=== PATIENT | female | born 1955 | race Caucasian/White ===

== ENCOUNTER → 2016-12-23 | Outpatient (CLI) | payer BC ==
[~2016-12-23] MED LIST: CALCTAB5 PO; FLUO20CA35 PO; FRS/40 PO; LEVO25TA5 PO; MILK175C3 PO; OXYC-57 PO; POTACAP PO; TAUR500C PO
== END | disposition home or self-care (01) ==
LOC: C.LABSPEC 10:49
PROVIDERS: ATTEND Obstetrics & Gynecology
DX: N89.8 Other specified noninflammatory disorders of vagina (principal)

== ENCOUNTER → 2017-01-12 | Outpatient (CLI) | payer BC ==
--- NOTE | 2017-01-12 16:37 | MAMMOGRAPHY REPORT ---
BILATERAL DIGITAL SCREENING MAMMOGRAM WITH CAD: 01/12/2017 CLINICAL HISTORY: Routine screening examination. TECHNIQUE: Current study was also evaluated with a Computer Aided Detection (CAD) system. COMPARISON: Comparison is made to exams dated: 01/10/2016 mammogram, 09/21/2013 mammogram, 01/09/2015 mammogram, 09/01/2011 mammogram, 09/24/2010 stereotactic biopsy, and 09/16/2010 mammogram - [facility]. BREAST COMPOSITION: There are scattered areas of fibroglandular density in both breasts. FINDINGS: There is a stable metallic biopsy marker in the central left breast. A few punctate benig n-appearing microcalcifications. No new suspicious mass, architectural distortion or cluster of lisa rocalcifications is seen. IMPRESSION: ACR BI-RADS CATEGORY 1: NEGATIVE There is no mammographic evidence of malignancy. A 1 year screening mammogram is recommended. The p atient will receive written notification of the results. Approximately 10% of breast cancers are not detected with mammography. A negative mammographic repor t should not delay biopsy if a clinically suggestive mass is present. Heidy Johnson M.D. ay/:01/12/2017 15:38:51 Color Adviser: Barbra PERDOMO)(Shannen), [facility] letter sent: Normal 1/2 BI-RADS Code: ACR BI-RADS Category 1: Negative
== END | disposition home or self-care (01) ==
LOC: C.MAMM 10:03
PROVIDERS: ATTEND Family Medicine
DX: Z12.31 Encounter for screening mammogram for malignant neoplasm of breast (principal)

== ENCOUNTER → 2018-01-13 | Outpatient (CLI) | payer OTHER ==
[~2018-01-13] MED LIST changes: -OXYC-57 PO
--- NOTE | 2018-01-14 07:22 | MAMMOGRAPHY REPORT ---
BILATERAL DIGITAL SCREENING MAMMOGRAM TOMOSYNTHESIS WITH CAD: 01/13/2018 CLINICAL HISTORY: Routine screening. Patient has no complaints. TECHNIQUE: Breast tomosynthesis in addition to standard 2D mammography was performed. Current study was also evaluated with a Computer Aided Detection (CAD) system. COMPARISON: Comparison is made to exams dated: 01/12/2017 mammogram, 01/10/2016 mammogram, 01/09/2015 m ammogram, 09/21/2013 mammogram, 09/12/2012 mammogram, and 09/01/2011 mammogram - [facility]. BREAST COMPOSITION: There are scattered areas of fibroglandular density in both breasts. FINDINGS: No suspicious masses, calcifications, or areas of architectural distortion are noted in ei ther breast. There has been no significant interval change compared to prior exams. A biopsy clip is again noted within the left breast. IMPRESSION: ACR BI-RADS CATEGORY 2: BENIGN There is no mammographic evidence of malignancy. A 1 year screening mammogram is recommended. The pa tient will receive written notification of the results. Approximately 10% of breast cancers are not detected with mammography. A negative mammographic report should not delay biopsy if a clinically suggestive mass is present. Ruth Bustamante M.D. /:01/13/2018 13:33:11 Psychiatric Cns: Lisa SCOTT(Cale)(Shannen)(BD), [facility] letter sent: Normal 1/2 BI-RADS Code: ACR BI-RADS Category 2: Benign
== END | disposition home or self-care (01) ==
LOC: C.MAMM 10:29
PROVIDERS: ATTEND Family Medicine
DX: Z12.31 Encounter for screening mammogram for malignant neoplasm of breast (principal)

== ENCOUNTER 2023-05-24 04:56 | Observation (INO) ==
--- NOTE | 2023-05-13 14:59 | PAT Medication Instructions ---
Medication Instructions Date of Service May 13, 2023 Home Medications Medication Instructions Recorded amoxicillin 500 mg tablet 2,000 mg PO ONCE PRN prophylaxis 10/13/21 #4 tabs oxycodone-acetaminophen 5 mg-325 1 tab PO Q6H PRN pain #30 tabs 05/05/ mg tablet (Percocet) calcium carbonate 600 mg-vitamin D3 20 mcg (800 unit) tablet (Caltrate with Vitamin D3) 1 tab PO QPM ibuprofen 200 mg capsule 400 mg PO UD PRN Pain ezetimibe 10 mg tablet (Zetia) 10 mg PO QPM amoxicillin 500 mg tablet 2,000 mg PO ONCE PRN prophylaxis celecoxib 200 mg capsule (Celebrex) 200 mg PO QAM furosemide 40 mg tablet 40 mg PO QPM levothyroxine 75 mcg tablet 75 mcg PO QAM Medical Marijuana Card 1 dose UD PRN Pain oxycodone-acetaminophen 5 mg-325 mg tablet (Percocet) 1 tab PO Q6H PRN pain alendronate 35 mg tablet 35 mg PO WK fluoxetine 40 mg capsule 40 mg PO QPM metoprolol tartrate 25 mg tablet 50 mg PO QPM potassium chloride 8 mEq capsule,extended release 8 meq PO QPM Continue as directed amoxicillin 500 mg tablet 2,000 mg PO ONCE PRN prophylaxis ASK your surgeon for instructions ibuprofen 200 mg capsule 400 mg PO UD PRN Pain celecoxib 200 mg capsule (Celebrex) 200 mg PO QAM alendronate 35 mg tablet 35 mg PO WK DO NOT take the morning of surgery Medical Marijuana Card 1 dose UD PRN Pain Take morning of surgery With a small sip of water, OTHERWISE NOTHING TO EAT OR DRINK AFTER MIDNIGHT: levothyroxine 75 mcg tablet 75 mcg PO QAM oxycodone-acetaminophen 5 mg-325 mg tablet (Percocet) 1 tab PO Q6H PRN pain (if needed) Take evening before surgery calcium carbonate 600 mg-vitamin D3 20 mcg (800 unit) tablet (Caltrate with Vitamin D3) 1 tab PO QPM ezetimibe 10 mg tablet (Zetia) 10 mg PO QPM furosemide 40 mg tablet 40 mg PO QPM Medical Marijuana Card 1 dose UD PRN Pain (if needed) oxycodone-acetaminophen 5 mg-325 mg tablet (Percocet) 1 tab PO Q6H PRN pain (if needed) fluoxetine 40 mg capsule 40 mg PO QPM metoprolol tartrate 25 mg tablet 50 mg PO QPM potassium chloride 8 mEq capsule,extended release 8 meq PO QPM Other Notes If you have any questions please call us at [phone] or [phone] or [phone] or [phone]
--- NOTE | 2023-05-18 15:00 | Anesthesiology Consultation ---
Date of Service May 18, 2023 Assessment & Plan (1) Encounter for pre-operative examination: Chart Review Chart Review: Acceptable Risk for Surgery and Patient seen in Pre Admission Testing Pt currently scheduled as 23 hours observation. If surgeon decides to change patient to Same Day Joint, patient would be acceptable risk for JATIN, pending patient is motivated, has good support and surgeon's office completes Same Day Joint Program preop requirements. Per PAT appt on 05/18/23, patient denies any recent travel. No recent Covid exposures, Covid related symptoms, or recent Covid positive tests. Will leave to surgeon's discretion if preop Covid testing needed. Educated on importance of using Covid precautions one week prior to surgery Left Reverse TSA 07/11/21= done under [place] with Grade 2 view with MAC #3. ETT #7.5. Teaching & Discussion Pre-Anesthesia Teaching/Discussion Notes: Instructed NPO after midnight before surgery,except medications with 15 cc of water. Medication instructions provided according to the PAT guidelines. History Surgery Operation Date: 05/24/23 12:00 Proposed Procedures p Right Anterior Total Hip Arthroplasty - Francis Pabon DO Height/Weight Height: 5 ft Weight: 76.3 kg Allergies Allergy/AdvReac Type Severity Reaction Status Date / Time clavulanic acid AdvReac Intermediate Projectile Verified 05/13/23 14:23 vomiting (Augmentin) Medications Home Medications Medication Instructions Recorded Confirmed Last Taken calcium carbonate 600 mg-vitamin 1 tab PO QPM 11/15/19 05/13/23 10/27/22 D3 20 mcg (800 unit) tablet (Caltrate with Vitamin D3) ibuprofen 200 mg capsule 400 mg PO UD PRN Pain 11/15/19 05/13/23 02/15/22 ezetimibe 10 mg tablet (Zetia) 10 mg PO QPM 06/02/21 05/13/23 10/27/22 amoxicillin 500 mg tablet 2,000 mg PO ONCE PRN prophylaxis 10/13/21 05/13/23 Unknown #4 tabs celecoxib 200 mg capsule (Celebrex) 200 mg PO QAM 02/16/22 05/13/23 10/25/22 furosemide 40 mg tablet 40 mg PO QPM 02/16/22 05/13/23 10/27/22 levothyroxine 75 mcg tablet 75 mcg PO QAM 02/16/22 05/13/23 10/27/22 Medical Marijuana Card 1 dose UD PRN Pain 10/23/22 05/13/23 Unknown alendronate 35 mg tablet 35 mg PO WK 05/13/23 05/13/23 Unknown fluoxetine 40 mg capsule 40 mg PO QPM 05/13/23 05/13/23 Unknown metoprolol tartrate 25 mg tablet 50 mg PO QPM 05/13/23 05/13/23 Unknown potassium chloride 8 mEq 8 meq PO QPM 05/13/23 05/13/23 Unknown capsule,extended release oxycodone-acetaminophen 5 mg-325 1 tab PO Q6H PRN pain #30 tabs 05/18/23 05/18/23 Unknown mg tablet (Percocet) Past Medical History Medical History Anxiety Chronic back pain GERD (gastroesophageal reflux disease) Well controlled and stable History of sciatica HTN (hypertension) Hx of migraines Hyperlipidemia Hypothyroidism Lumbar facet arthropathy Swelling of lower leg Occasional (reason for lasix) Temporomandibular joint disorder R/L clicking, no locking Exercise / Class Metabolic Activity III < 4 Walking/Shop/Light housework (one flight of stairs - no chest pain, mild SOB - due to hip pain ) Past Family History Family History Other No pertinent family history Past Surgical History Surgical History Family history of reaction to anesthesia Daughter- slow to wake H/O knee surgery Left ACL X 3 History of breast biopsy benign History of carpal tunnel release R/L History of cataract surgery R/L History of cholecystectomy History of colonoscopy History of esophagogastroduodenoscopy (EGD) History of hysterectomy Total History of selective injection of anesthetic agent around lumbar nerve root Right L5-S1 Medial branch block History of tooth extraction S/p reverse total shoulder arthroplasty Left reverse TSA (07/11/21): Grade 2 view, MAC#3, ETT 7.5 + PNB at [facility] Past Anesthesia History No Hx of Anesthesia Complications and No Family Hx of Anesthesia Complications (with exception to daughter- slow to wake- just groggy - no reintubation or ICU ) History of PONV No Hx of PONV and No Hx of Motion Sickness Social History Smoking Status: Former smoker tobacco type: cigarettes Do You Dip or Chew Tobacco: No Smoking End Date: 17 years ago Hx Alcohol Use: Yes Alcohol type: hard liquor alcohol intake frequency: holidays/special occasions only Hx Substance Use: Yes substance use type: does not use Substance Use Type Other:: MEDICAL MARIJUANA CARD Last Used Substance: Unknown Last Used Substance Other:: usually in the evening recently with increased pain Review of Systems Patient denies chest pain, shortness of breath, dyspnea on exertion, cough, wheezing, palpitations. No hx of seizures, stroke, [place], apnea/snoring. No hx of blood clots or blood transfusions Physical Exam Vital Signs VITALS BP 169/103 (patient in increased pain; patient called into [facility] 05/19/23- recheck BP at home was 127/76) P 86 TEMP 97.6 SP02 95% RES 16P Constitutional no acute distress ENMT Mouth: no TMJ clicking Thyromental Distance: > or= 3.5 Finger Breadths (3.5) Mallampati Class: I Missing molars and side tooth Permanent implant to side teeth Caps to top front teeth Caps to molars and side teeth Neck neck extension not limited Respiratory normal respiratory effort; no respiratory distress Auscultation: lungs clear to auscultation bilaterally; no wheezes Cardiovascular Rate/Rhythm: regular rate and regular rhythm Heart Sounds: no murmur Vessels: no carotid bruit Musculoskeletal Spine: no pain with cervical ROM Extremities: extremities normal to inspection Psychiatric Orientation: alert Lab Results Anesthesia Preop Results Results Anesthesia Widget: WBC 10.70 K/ul (4.8-10.8) 05/18/23 Hgb 12.1 g/dl (12.0-16.0) 05/18/23 Hct 36.2 % (37.0-47.0) L 05/18/23 Plt 328 K/uL (130-400) 05/18/23 Na 137 mmol/L (136-145) 05/18/23 K 3.8 mmol/L (3.5-5.1) 05/18/23 Cl 106 mmol/L (98-107) 05/18/23 CO2 23 mmol/L (21-32) 05/18/23 BUN 20 mg/dl (6-23) 05/18/23 Creat 0.79 mg/dl (0.6-1.2) 05/18/23 Glucose Level 100 mg/dl (70-99(Fasting)) H 05/18/23 PT 10.1 Seconds (9.0-12.0) 05/18/23 PTT 25.6 Seconds (21.0-31.0) 05/18/23 INR 0.9 (0.9-1.1) 05/18/23 Blood Type O Negative 05/18/23 Antibody Screen NEGATIVE 05/18/23 Testing Electrocardiogram Date: 05/18/23 Findings: + NSR @ (80bpm) Normal EKG per cardio Chest X-Ray Date: 05/18/23 FINDINGS: Cardiac mediastinal and hilar silhouettes are within normal limits. Left shoulder arthroplasty. Chronic right-sided rib fractures. Surgical suture material in the abdominal right upper quadrant. Mild sigmoidal scoliosis of the spine. No pneumothorax, pleural effusion, airspace consolidation or pulmonary edema. IMPRESSION: No acute process.
[2023-05-24] MEDS ORDERED: TRANEXAMIC ACID 1,000 MG **IV Pre-op IV SCH (06:00)
[2023-05-24] MEDS ORDERED: dexAMETHasone 4 MG TAB PO SCH (06:00)
[2023-05-24] MEDS ORDERED: FAMOTIDINE 20 MG TAB PO SCH (06:00)
[2023-05-24] MEDS ORDERED: GABAPENTIN 300 MG CAP PO SCH (06:00)
[2023-05-24] MEDS ORDERED: ORTHO JOINT MIX INFIL SCH (06:00)
[2023-05-24] MEDS ORDERED: ACETAMINOPHEN 500 MG TAB PO SCH (06:00)
[2023-05-24] MEDS ORDERED: ceFAZolin 2000MG 2,000 MG/15 ML SYR IV SCH (06:00)
[2023-05-24] MEDS ORDERED: TRANEXAMIC ACID 1,000 MG **IV Intra-op IV SCH (06:00)
[2023-05-24] MEDS ORDERED: LR 60ML/HR IV SCH (06:00)
[2023-05-24] MEDS ORDERED: LR 500ML BOLUS, THEN 15ML/HR IV SCH (06:00)
[2023-05-24] MEDS ORDERED: MIDAZOLAM HCL 1 MG/ML 2ML VIAL ONE ×2 (06:26)
[2023-05-24] MEDS ORDERED: LIDOCAINE 2% 2 ML VIAL/AMP(20MG/ML) INFIL ONE (06:26)
[2023-05-24] MEDS ORDERED: fentaNYL citrate PF 100 MCG/2 ML VIAL ONE (06:26)
[2023-05-24] MEDS ORDERED: PROPOFOL IV EMULSION 10 MG/ML 20 ML VIAL IV ONE (06:26)
[2023-05-24] MEDS ORDERED: ROPIVACAINE 0.5% 5 MG/ML 30 ML VIAL ONE (06:30)
[2023-05-24] MEDS ORDERED: ePHEDrine sulfate 50 MG/ML AMP IV PRN (06:39)
[2023-05-24] MEDS ORDERED: fentaNYL citrate PF 100 MCG/2 ML VIAL IV PRN (06:39)
[2023-05-24] MEDS ORDERED: ATROPINE SULFATE 0.1 MG/ML 10ML SYR IV PRN (06:39)
[2023-05-24] MEDS ORDERED: ONDANSETRON INJ 2 MG/ML 2 ML VIAL IV PRN ×2 (06:39→10:09)
[2023-05-24] MEDS ORDERED: HYDROmorphone INJ 2 MG/ML SYR/VIAL IV PRN (06:39)
--- NOTE | 2023-05-24 06:40 | History & Physical Bridge Note ---
Date of Service May 24, 2023 History & Physical Bridge Note I have examined the patient, reviewed the History & Physical and in the interval since the performance of the History & Physical I have noted the following changes of clinical significance: no changes noted
[2023-05-24] MEDS ORDERED: ORTHO JOINT ANESTHETIC ONE (06:52)
[2023-05-24] MEDS ORDERED: ePHEDrine sulfate 50 MG/ML SYR ONE (07:42)
--- NOTE | 2023-05-24 08:07 | Operative Report ---
PG Post Operative Report Pre & Post Diagnosis Operation Date: 05/24/23 07:00 Pre-Op Diagnosis: (1) Osteoarthritis of right hip: Post-Op Diagnosis: (1) Osteoarthritis of right hip: I identified the patient and participated in the time-out.: Yes Procedure Operation Date: 05/24/23 07:00 Actual Procedures p Right Anterior Total Hip Arthroplasty(Right) - Francis Pabon DO Surgeon Francis Pabon DO Equipment Maint Tech Francis Osorio PA-C Estimated Blood Loss 200 Findings Consistent with Post-Op Diagnosis Specimens Right femoral head Description of Procedure Implants used I used a ZimmerBiomet total hip arthroplasty system with a size 1 high offset Avenir Complete stem, a 46 mm G7 cup with a 25mm screw, an E1 polyethylene liner , a 32 mm ceramic head with a +3.5 neck. Mellissa arrived at the hospital for the above procedure. She was seen in the preoperative holding area and the operative extremity was identified and signed. She was given a spinal anesthetic, a preoperative antibiotic, and TXA. She was then taken back to the operating room and laid on the table in the supine position. She was given basic sedation. The operative leg was secured to a Puristst leg positioner. The hip was then prepped and draped in sterile fashion. A timeout was done and the patient and the operative extremity was properly identified. An anterior approach was used. Dissection was taken down through the fascia and the tensor muscle belly was retracted laterally and the rectus was retracted medially. The circumflex vessels were identified and ligated. The capsule was then incised and tagged for later repair. The femoral neck was then cut and the femoral head was removed. The acetabulum was exposed. Time was spent doing a complete circumferential labral release. Sequential reaming of the acetabulum up to a size 45 reamer was done. Final reamings were done under fluoroscopy to ensure appropriate version. A Biomet 46 mm G7 cup was then impacted into place. A single 25 mm screw was placed. The E1 polyethylene liner was then snapped into place. Surrounding soft tissues were then injected with 100 cc of an orthopedic pain control cocktail. The proximal femur was then exposed. Sequential broaching up to a size 1 broach was done. Off that broach a size 32 head with a +3.5 neck was trialed. The hip was reduced and fluoroscopic images showed anatomic alignment of the implants in acceptable length. The broach was removed. The final size 1 standard offset Avenir Complete stem was then impacted into place. A ceramic 32 mm head with a +3.5 neck was then impacted onto the stem and the hip was reduced. Final fluoroscopic images showed anatomic alignment of the hip. The capsule was then closed with #1 Vicryl suture. A dilute betadyne lavage was then done for 3 minutes. The joint was then irrigated with normal saline solution. The fascia was closed with #1 PDS suture. Skin was closed with 2-0 Vicryl, dandre, and a Silverlon dressing. She was then transferred to a hospital bed and taken to the post anesthesia care unit in stable condition. She tolerated the procedure well. Francis Osorio PA-C, was present for the entire procedure. He was critical for patient positioning, prepping, draping, retraction exposure, wound closure and application of sterile dressing. I attest to the content of the Intraoperative Record and any orders documented therein. Any exceptions are noted below.
[2023-05-24] MEDS ORDERED: ONDANSETRON INJ 2 MG/ML 2 ML VIAL ONE (08:36)
--- NOTE | 2023-05-24 09:05 | XRay Report ---
XR hip 1V RT w pelvis CLINICAL HISTORY: IN PACU - Post Surgical TECHNIQUE: 2 views of the right hip and single frontal view of the pelvis were obtained. Comparison: Comparison is made to right hip radiograph 12/15/2022 FINDINGS: Patient is status post total hip arthroplasty with expected postsurgical changes including soft tissu e swelling and subcutaneous emphysema. Joint spaces are well-preserved. No soft tissue abnormality i s seen. IMPRESSION: Expected postoperative appearance status post placement of total hip arthroplasty. ACT 112: Negative or not required by law. Electronically signed by: David Man M.D. 05/24/2023 9:03 AM
--- NOTE | 2023-05-24 09:15 | Fluoroscopy Report ---
FL hip RT 1V CLINICAL HISTORY: RT ANTERIOR JATIN TECHNIQUE: 1 views were obtained with the C-arm in the OR with the above procedure. Total fluoroscopy time was 19.0 seconds. Radiation dose was 2.2 mGy. Comparison: Comparison is made to hip radiographs 04/15/2023 FINDINGS/IMPRESSION: Intraoperative images were obtained of right hip arthroplasty. Please correlate with intraoperative fluoroscopy and operative report. ACT 112: Negative or not required by law. Electronically signed by: David Man M.D. 05/24/2023 9:14 AM
[2023-05-24] MEDS ORDERED: oxyCODONE HCL IR 5 MG TAB (IMMEDIATE RELEASE) PO PRN (10:09)
[2023-05-24] MEDS ORDERED: MAGNESIUM HYDROXIDE SUSP 30 ML UDC PO PRN (10:09)
[2023-05-24] MEDS ORDERED: HYDROmorphone INJ 0.5 MG/0.5 ML SYR IV PRN (10:09)
[2023-05-24] MEDS ORDERED: bisacodyL 10 MG SUPP PR PRN (10:09)
[2023-05-24] MEDS ORDERED: SODIUM CHLORIDE 0.9% 1000ML 1,000 ML IV SCH (10:09)
[2023-05-24] MEDS ORDERED: NALOXONE HCL 0.4 MG/1 ML VIAL/CARP IV PRN (10:09)
[2023-05-24] MEDS ORDERED: METOCLOPRAMIDE HCL INJ 5 MG/ML 2 ML VIAL IV PRN (10:09)
--- NOTE | 2023-05-24 10:19 | Anesthesiology Progress Note ---
Date of Service May 24, 2023 Anesthesia Post Procedure Vital Signs Vital Signs: Temp Pulse Pulse Resp BP Pulse Ox O2 Del Method 05/24/23 09:40 72 14 109/64 94 Room Air 05/24/23 09:30 36.4 C L 67 14 120/71 95 Room Air 05/24/23 09:20 62 14 126/81 95 Room Air 05/24/23 09:10 72 16 127/61 94 Room Air 05/24/23 09:00 69 18 133/81 95 Room Air 05/24/23 08:50 70 18 128/80 96 Room Air 05/24/23 08:40 72 14 111/70 96 Room Air 05/24/23 08:32 36.6 C 71 14 107/58 L 95 Room Air 05/24/23 06:04 66 20 168/73 H 98 Room Air 05/24/23 05:28 37 C 87 20 188/102 H 97 Room Air Pain Intensity Right Hip: Pain Intensity: 8 Transfer of Care Handoff Completed per policy Notes Mental Status: alert / awake / arousable and participated in evaluation Patient Amnestic to Procedure: Yes Nausea / Vomiting: adequately controlled Pain: adequately controlled Airway Patency, RR, SpO2: stable & adequate BP & HR: stable & adequate Hydration State: stable & adequate Neuraxial Anesthesia: was administered and sensory block is resolving Anesthetic Complications: no major complications apparent and Pt Satisfied with anesthetic care
[2023-05-24] MEDS: ASPIRIN 81 MG ECTAB PO SCH ×2 (10:35→21:31)
[2023-05-24] MEDS: MULTIVITAMIN TAB PO SCH (10:35)
[2023-05-24] MEDS: DOCUSATE SODIUM 100 MG CAP PO SCH ×2 (10:35→21:31)
[2023-05-24] MEDS: KETOROLAC TROMETHAMINE 15 MG/ML VIAL IV SCH ×3 (10:36→23:08)
[2023-05-24] MEDS: ACETAMINOPHEN 500 MG TAB PO SCH ×2 (13:50→21:33)
[2023-05-24] MEDS: ceFAZolin 2000MG 2,000 MG/15 ML SYR IV SCH ×2 (15:16→23:08)
[2023-05-24] MEDS ORDERED: EZETIMIBE 10 MG TABLET PO SCH (21:00)
[2023-05-24] MEDS ORDERED: METOPROLOL TARTRATE 50 MG TAB PO SCH (21:00)
[2023-05-24] MEDS ORDERED: SENNA 8.6 MG TAB PO SCH (21:00)
[2023-05-24] MEDS ORDERED: FLUoxetine HCL 20 MG CAP PO SCH (21:00)
[2023-05-24] MEDS ORDERED: POTASSIUM CHLORIDE 8 MEQ PO SCH (21:00)
[2023-05-24] MEDS ORDERED: FUROSEMIDE 40 MG TAB PO SCH (21:00)
[2023-05-25] MEDS: ACETAMINOPHEN 500 MG TAB PO SCH (06:01)
[2023-05-25] MEDS: KETOROLAC TROMETHAMINE 15 MG/ML VIAL IV SCH (06:01)
[2023-05-25] MEDS ORDERED: LEVOTHYROXINE SODIUM 75 MCG TABLET PO SCH (06:30)
--- NOTE | 2023-05-25 06:59 | Orthopedic Progress Note ---
Date of Service May 25, 2023 Assessment & Plan (1) Status post right hip replacement: Overall she is doing well. She is not having much pain in the right hip. She will be seen by physical therapy today for ambulation and range of motion exercises. She is on aspirin for DVT prophylaxis. She can be discharged home later today. She will follow-up orthopedics in 2 weeks. Ankit Malloy was seen and examined at bedside this morning. Overall she is doing very well. She is not having much pain in the right hip. She has been up and ambulating to the bathroom. She has no complaints.. Review of Systems All systems reviewed & are unremarkable except as noted in HPI & below. Physical Exam On physical examination of the right hip, the dressing is clean and dry. Her leg is out full extension. She has active dorsiflexion plantarflexion of her right ankle.. Results & Data Results & Data Laboratory Results . Diagnostic Findings Postoperative x-rays of the right hip show the prosthesis to be in anatomic alignment without any evidence of fracture, dislocation, or loosening. PG Care Time/CCT Total # of Minutes Spent Total Time Spent with Patient: Total time spent is greater than 50% in coordination of care (as documented) at patient's floor/unit and/or counseling patient: Coding Level of Care Code 68224 Post Operative Follow-Up Diagnoses Status post right hip replacement Z96.641
--- NOTE | 2023-05-25 07:00 | Discharge Summary ---
Date of Service May 25, 2023 Principal Diagnosis Same as "Discharge Diagnosis" noted below under Discharge Instructions. Discharge Exam On physical examination of the right hip, the dressing is clean and dry. Her leg is out full extension. She has active dorsiflexion plantarflexion of her right ankle.. Discharge Data Procedures Performed Operation Date: 05/24/23 07:00 Actual Procedures p Right Anterior Total Hip Arthroplasty(Right) - Francis Pabon DO Ordered Studies 05/24/23 07:00 FL hip RT 1V Routine Hospital Course (1) Status post right hip replacement: On May 24, 2023 Mellissa arrived at [facility] and underwent a right hip replaced without complication. She had a spinal anesthetic. Postoperatively she was started on aspirin for DVT prophylaxis and transferred to the general orthopedic floors. Her hospital course was uneventful. On postop day #1, her vital signs were stable and her pain was well-controlled. She was able to participate well with physical therapy doing ambulation and ra nge of motion exercises. She was then discharged home. She will follow-up with orthopedics in 2 weeks. PG Care Time/CCT Total # of Minutes Spent Total Time Spent with Patient: Total time spent is greater than 50% in coordination of care (as documented) at patient's floor/unit and/or counseling patient: Discharge Plan Discharge Items Patient Disposition: Home - Home Health Services Reason For Visit: DJD Right Hip Discharge Diagnosis: Right hip replacement Activity: As commented below Non-emergency contact: Surgeon Call non-emergency contact if: your wound has increased redness and your wound has increased drainage Follow-up/Referrals: Staci Rivera DO [Primary Care Provider] - Diet: Regular Addtl Attending Provider Instructions: Activity and Therapy Recommendations: * If you are using [facility] then therapy will be provided at your home until they feel you have accomplished all of your goals. * If you are using [facility] then Physical Therapy will be provided until they feel you are ready to start Outpatient Physical Therapy. * If you are not using home therapy then Outpatient Physical Therapy should start about 3-5 days from your day of surgery. Therapy will last about 6-10 weeks * You were shown a series of exercises in the hospital. Do these exercises three times each day including the exercises you were shown in physical therapy. * Get up and walk several times each day.~ For the first four weeks, try not to stand or walk for more than one hour at a time. If you do stand or walk for more than one hour, you will not hurt anything, but your leg will likely swell.~~ * As you feel comfortable, you may change from the walker or crutches to a cane and~then to independent walking. Medications: * Narcotic You will likely be sent home from the hospital with a prescription for the narcotic pain medication that worked best throughout your stay. * Aspirin Most patients will be required to take Aspirin 81mg twice a day for 6 weeks after surgery. This is obtained [id number] and a prescription is not necessary. * Other medications may be prescribed for specific circumstances. If you have any questions, please call the office at . * Resume previous home medications unless otherwise instructed TEDs/Elastic Stockings: The white elastic stockings help limit swelling and prevent blood clots from forming in your legs. The more you wear them, the more they work. Wear them for six weeks. Dressing Care: Leave the Silverlon dressing in place for 7 days. After 7 days you may remove the dressing. If the incision is not draining then you may leave the dandre open to air. If there is a little bit of drainage or if the dandre are getting stuck on your clothing then cover the incision with a dry dressing. The dandre will be removed at your 2 week follow-up appointment. Showering: You may shower with the Silverlon dressing in place. Do not let the shower spray hit the dressing directly. Pat the Silverlon dressing dry. If the dressing becomes wet underneath, then simply remove the dressing. Keep the incision dry until you are 7 days out from the day of surgery. After 7 days you may remove the Silverlon dressing and shower with the dandre exposed. Let soapy water run over the dandre and pat them dry. Do not scrub or soak the incision. Things To Watch For: * Drainage from the incision site that occurs more than one week after your surgery. * Increased redness at the incision site. * Fever above 102 degrees Fahrenheit. * Unusual chest pain or shortness of breath. * Call [facility] at with any of the above problems Follow-Up Visit: Follow-up with Dr. Pabon's PA (Francis Osorio) 2-3 weeks after your day of surgery. He will remove your dandre and answer any questions. If you have any additional questions or concerns, Dr Pabon is usually in the office at the same time and will be available An appointment was probably scheduled when you signed-up for surgery in the office. If you have any questions call Office Instructions: More detailed instructions as well as Frequently Asked Questions were provided in a folder by our office when you signed-up for surgery. Please review these instructions when you get home. If you have any further questions or concerns, please feel free to call the office at [phone] Pending Studies at Discharge: No Stand-Alone Forms: [employer], Smoking Cessation Medications and DC Order Prescriptions: New aspirin 81 mg Tablet,Delayed Release (Dr/Ec) 81 mg PO BID 42 Days Qty: 0 0RF Continued amoxicillin 500 mg tablet 2,000 mg PO ONCE PRN (Reason: prophylaxis) Qty: 4 2RF Rx Instructions: ONE HOUR PRIOR TO DENTAL PROCEDURE ( VERIFIED PAT CALL 10/23/22) ibuprofen 200 mg Capsule 400 mg PO UD PRN (Reason: Pain) calcium carbonate-vitamin D3 [Caltrate with Vitamin D3] 600 mg(1,500mg) -800 unit Tablet 1 tab PO QPM ezetimibe [Zetia] 10 mg Tablet 10 mg PO QPM celecoxib [Celebrex] 200 mg Capsule 200 mg PO QAM furosemide 40 mg Tablet 40 mg PO QPM levothyroxine 75 mcg Tablet 75 mcg PO QAM fluoxetine 40 mg Capsule 40 mg PO QPM potassium chloride 8 mEq Capsule, Extended Release 8 meq PO QPM alendronate 35 mg Tablet 35 mg PO WK Patient Comments: wed metoprolol tartrate 25 mg Tablet 50 mg PO QPM oxycodone-acetaminophen [Percocet] 5-325 mg tablet 1 tab PO Q6H PRN (Reason: pain) Qty: 30 0RF Medical Marijuana Card 1 dose UD PRN (Reason: Pain) Admission Data Admit Date/Time: 05/24/23 08:35 Attending Provider: Francis Pabon Admit Provider: Francis Pabon Primary Care Provider: Staci Rivera
[2023-05-25] MEDS: DOCUSATE SODIUM 100 MG CAP PO SCH (08:00)
[2023-05-25] MEDS: ASPIRIN 81 MG ECTAB PO SCH (08:00)
[2023-05-25] MEDS: MULTIVITAMIN TAB PO SCH (09:49)
[2023-05-26] MEDS ORDERED: ALENDRONATE SODIUM 70 MG TAB PO SCH (06:30)
== END 2023-05-25 11:16 | disposition home health service (06) ==
LOC: 3E 04:56 → ASU 04:56